=== PATIENT | male | born 1985 | race Caucasian/White ===

== ENCOUNTER 2018-09-16 07:52 | Day surgery (SDC) | payer BC ==
[~2018-09-16 07:52] MED LIST: ROCURONIUM 50 MG INJ; SEVOFLURANE 15 MIN
[2018-09-16] MEDS ORDERED: LACTATED RINGER'S 1,000 ML IV (09:00)
[2018-09-16] MEDS ORDERED: MIDAZOLAM 1 MG/ML 2 ML INJ (11:30)
[2018-09-16] MEDS ORDERED: ONDANSETRON 4 MG INJ ×2 (11:42→12:36)
[2018-09-16] MEDS: COCAINE 4% 4 ML TOP (12:04)
[2018-09-16] MEDS: NEOMYC/POLYMYX/BACIT 30 GM OINT (12:04)
[2018-09-16] MEDS: LIDOCAINE 1%/EPI (1:100,000) (MDV) 20 ML (12:04)
[2018-09-16] MEDS ORDERED: NEOSTIGMINE 3 MG/3 ML SYRINGE (12:38)
[2018-09-16] MEDS ORDERED: PROPOFOL 20 ML (12:38)
[2018-09-16] MEDS ORDERED: GLYCOPYRROLATE 0.4 MG INJ (12:38)
[2018-09-16] MEDS ORDERED: LIDOCAINE 2% (SDV) 5 ML INJ (12:38)
[2018-09-16] MEDS ORDERED: CEFAZOLIN 1 GM INJ (12:39)
[2018-09-16] MEDS ORDERED: ALBUTEROL 0.083% (NEB) 2.5 MG/3 ML AMP (12:57)
[2018-09-16] MEDS ORDERED: ONDANSETRON 4 MG INJ IV (13:00)
[2018-09-16] MEDS ORDERED: DIPHENHYDRAMINE 50 MG INJ IV (13:00)
[2018-09-16] MEDS ORDERED: FENTAnyl 50 MCG/ML VIAL IV (13:00)
[2018-09-16] MEDS ORDERED: METOCLOPRAMIDE 10 MG INJ IV (13:00)
[2018-09-16] MEDS ORDERED: MEPERIDINE 25 MG INJ IV (13:00)
[2018-09-16] MEDS: HYDROmorphONE 1 MG/5 ML IV SYRINGE IV ×2 (13:11→13:20)
[2018-09-16] MEDS: ALBUTEROL 0.083% (NEB) 2.5 MG/3 ML AMP HHN (13:12)
== END 2018-09-16 14:40 | disposition home or self-care (01) ==
LOC: SDS 07:52
DX: J34.2 Deviated nasal septum (principal); J34.3 Hypertrophy of nasal turbinates; J34.89 Other specified disorders of nose and nasal sinuses
CPT/HCPCS: 30140; 88300